=== PATIENT | female | born 2000 | race Caucasian/White ===

== ENCOUNTER 2019-09-17 07:59 | Day surgery (SDC) | payer OTHER ==
[2019-09-16 11:03] VITALS: BMI 19.4
[2019-09-17] MEDS ORDERED: LIDOCAINE HCL 1%, 10 MG/ML (20ML VIAL) ONE ×2 (10:00→11:00)
[2019-09-17] MEDS ORDERED: LIDOCAINE 1%-EPI 1:100,000 30 ML MDV IJ ONE (10:00)
[2019-09-17] MEDS ORDERED: PROPOFOL 20 ML ONE ×2 (10:18→11:08)
[2019-09-17] MEDS ORDERED: MIDAZOLAM HCL 2 MG/2 ML SINGLE DOSE VIAL ONE ×2 (10:18)
[2019-09-17] MEDS ORDERED: LIDOCAINE HCL 1%, 10 MG/ML (20ML VIAL) NR ONE (11:05)
--- NOTE | 2019-09-17 13:10 | OP ---
DATE OF OPERATION: 09/17/2019 PREOPERATIVE DIAGNOSIS: Left breast mass. POSTOPERATIVE DIAGNOSIS: Left breast mass. PROCEDURE: Excision of left breast mass. SURGEON: Ailyn Borja MD ANESTHESIA: Local IV sedation. ESTIMATED BLOOD LOSS: Minimal. COMPLICATIONS: None. This was a sterile procedure. INDICATIONS: Patient presented with a palpable mass in the left breast 12 o'clock location 7 cm from the nipple. We discussed options of a needle biopsy versus excision, and the decision was to go ahead with an excisional biopsy. The procedure was discussed with all of the questions answered. PROCEDURE IN DETAIL: Patient brought to [facility] in [place]. Taken into the operating room. After IV sedation, the left breast was prepped in the usual sterile fashion. An area of the upper left breast was anesthetized with 1% lidocaine without epinephrine. An incision was made overlying the mass in the left 12 o'clock location 7 cm from the nipple, and the mass was removed en bloc. Sent as left breast mass to Pathology in formalin. Hemostasis was assured with electrocautery. The parenchyma approximated with interrupted 3-0 Vicryl, skin approximated with interrupted 3-0 Vicryl, running 4-0 Prolene. A sterile dressing with Tegaderm, 4 x 4 was applied. She tolerated procedure well. Was taken to recovery in good condition. AILYN BORJA M.D. [id number]
[2019-09-17 13:16] VITALS: BP 118/67; TEMP 98.1
[2019-09-17 15:02] VITALS: PULSE 90
[2019-09-17] MEDS ORDERED: oxyCODONE HCL 5 MG TABLET PO PRN (15:16)
[2019-09-17] MEDS ORDERED: ONDANSETRON 4 MG/2 ML VIAL IVPUSH PRN (15:16)
[2019-09-17] MEDS ORDERED: LACTATED RINGERS SOLUTION 1,000 ML IV SCH (15:30)
--- NOTE | 2019-09-21 09:08 | PATH ---
Surgical Pathology Report Patient Name: IVANA FRANKLIN [facility]. Rec. #: [id number] /Age/Gender: 2000 (Age: 19) / F Account: [id number] Location: [facility] Taken: 09/17/2019 Received: 09/17/2019 Reported: 09/21/2019 Physicians: Ailyn Dior M.D. 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 Comment: The tumor shows circumscribed pushing border, cleftlike spaces lined by benign epithelium and focally hypercellular stroma. Mitotic figures are ~1 /10 HPF. Intradepartmental case review with concordance on diagnosis, 09/20/2019. Electronically Signed Ludin Fields M.D. Gross Description Received in formalin labeled "left breast mass," is a 4.0 x 3.0 x 2.6 cm irregular, unoriented portion of fibroadipose tissue. There is no needle localization wire present. There is no skin present. The specimen is inked blue and serially sectioned. Sectioning reveals a 4.0 x 2.8 x 2.0 cm henson, rubbery, well-circumscribed mass. The mass displays focal necrosis. Separately received within the same container is a 1.8 x 1.3 x 0.5 cm additional, unoriented portion of fibroadipose tissue. The specimen is inked blue and serially sectioned. Sectioning reveals foci of fibrous tissue. The specimen is entirely submitted in 12 cassettes as follows: [id number] and sequentially submitted larger portion of tissue; [id number] submitted smaller portion of tissue. Total formalin fixation time: Approximately 6 hours DL/09/17/2019 saudi/09/17/2019
== END 2019-09-17 15:03 | disposition home or self-care (01) ==
LOC: JASU-SURG 07:59
PROVIDERS: ATTEND Surgery
PROC: 0HBU0ZX Excision of Left Breast, Open Approach, Diagnostic (ICD-10-PCS; principal; 2019-09-17 10:00)
DX: D24.2 Benign neoplasm of left breast (principal)
CPT/HCPCS: 84703; 88307-TC; 94760